=== PATIENT | male | born 1990 | race Caucasian/White ===

== ENCOUNTER 2018-10-21 07:19 | Emergency (ER) | payer BC, OTHER, SELFPAY ==
[~2018-10-21] VITALS: Ht 177.8 cm; Wt 81.3 kg
[2018-10-21 08:35] VITALS: BP 134/84
== END 2018-10-21 08:57 | disposition home or self-care (01) ==
LOC: M ED 07:19
DX: F32.9 Major depressive disorder, single episode, unspecified (principal); F41.9 Anxiety disorder, unspecified; Z77.098 Contact with and (suspected) exposure to other hazardous, chiefly nonmedicinal, chemicals

== ENCOUNTER → 2020-10-04 | Outpatient (CLI) | payer SELFPAY | LOC: M LABSMTC 09:41 | PROVIDERS: ATTEND Pediatrics | DX: Z11.52 Encounter for screening for COVID-19 (principal) ==